=== PATIENT | male | born 1995 | race Hispanic/Latino ===

== ENCOUNTER 2021-11-05 09:17 | Emergency (ER) | payer BC, OTHER ==
[~2021-11-05] VITALS: Ht 167.6 cm; Wt 104.3 kg
[2021-11-05] MEDS ORDERED: FLUT16H NASAL (10:18)
[2021-11-05] MEDS ORDERED: DOXY100T2 PO (10:18)
[2021-11-05] MEDS ORDERED: NIRM1TAB PO (10:18)
[2021-11-05 10:21] VITALS: BP 135/62
== END 2021-11-05 10:31 | disposition home or self-care (01) ==
LOC: EDH 09:17
DX: U07.1 COVID-19 (principal)
CPT/HCPCS: 87635; 87804 ×2; 87880; 99283; C9803